=== PATIENT | female | born 1950 | race Caucasian/White ===

== ENCOUNTER 2019-04-29 20:49 | Emergency (ER) | payer MEDICARE, OTHER ==
[~2019-04-29] VITALS: Ht 165.1 cm; Wt 127.0 kg
[2019-04-29] MEDS ORDERED: CEPHALEXIN500 M1 PO (23:24)
== END 2019-04-29 23:38 | disposition home or self-care (01) ==
LOC: ED 20:49
DX: S61.212A Laceration without foreign body of right middle finger without damage to nail, initial encounter (principal); I10 Essential (primary) hypertension; W23.0XXA Caught, crushed, jammed, or pinched between moving objects, initial encounter; Y93.89 Activity, other specified; Y92.89 Other specified places as the place of occurrence of the external cause; Y99.8 Other external cause status